=== PATIENT | male | born 1980 | race Caucasian/White ===

== ENCOUNTER 2018-08-24 09:35 | Emergency (ER) | payer SELFPAY ==
[~2018-08-24] VITALS: Ht 177.8 cm; Wt 93.0 kg
[~2018-08-24 09:35] MED LIST: CLIN300C10 PO; IBUP-1542 PO; TRAM50TA2 PO
[2018-08-24 10:01] VITALS: BP 128/74; PULSE 85; RESP 18; Ht 177.8 cm; Wt 93.0 kg
[2018-08-24] MEDS ORDERED: ACET500C5 PO (10:28)
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
== END 2018-08-24 10:50 | disposition home or self-care (01) ==
LOC: FTE 09:35
DX: M54.6 Pain in thoracic spine (principal); Z04.1 Encounter for examination and observation following transport accident
CPT/HCPCS: 99282